=== PATIENT | male | born 1965 ===

== ENCOUNTER → 2021-11-17 14:07 | Outpatient (CLI) | payer OTHER, SELFPAY ==
--- NOTE | ~2021-11-17 | MR_ITS ---
EXAMINATION: MR knee LT wo con DATE: 11/17/2021 14:46 INDICATION: Acute left knee pain, no injury TECHNIQUE: Magnetic resonance imaging (MRI) of the left knee was performed without intravenous contra st. Sequences included axial PD-weighted FS FSE, coronal PD-weighted FSE and PD-weighted FS FSE, sagi ttal PD-weighted FSE, and sagittal T2-weighted FS FSE. COMPARISON: None. FINDINGS: Medial compartment: Oblique tear of the posterior horn/body. Mild diffuse cartilage thinning. Mild osteophytosis. Lateral compartment: Meniscus intact. Mild diffuse cartilage thinning. Mild osteophytosis. Patellofemoral compartment: Near full-thickness cartilage loss and fraying along the medial facet. Small cartilaginous fissure in the lateral facet. Retinacula are intact. Ligaments and tendons: ACL, PCL, LCL, and MCL are intact. Major flexor and extensor tendons are intact. Fluid: Small volume joint fluid. Small Aragon's cyst. Osseous/other: Bone marrow signal is benign and homogenous. Subcutaneous edema over the patella and patellar tendon IMPRESSION: 1. Oblique tear of the body/posterior horn, medial meniscus. 2. Anterior soft tissue contusion/edema. 3. Small joint effusion. Small Aragon's cyst. 4. Chondromalacia patella. Reviewed, dictated and finalized at location K.
== END ==
PROVIDERS: PCP Internal Medicine; Visit Provider Physician Assistant
DX: M25.462 Effusion, left knee (principal); M71.22 Synovial cyst of popliteal space [Baker], left knee
CPT/HCPCS: 73721

== ENCOUNTER → 2022-08-10 14:34 | Outpatient (CLI) | payer OTHER, SELFPAY ==
--- NOTE | ~2022-08-10 | MR_ITS ---
EXAMINATION: MR knee LT wo con DATE: 08/10/2022 15:16 INDICATION: Left knee pain post arthroscopy TECHNIQUE: Magnetic resonance imaging (MRI) of the left knee was performed without intravenous contra st. Sequences included coronal PD-weighted FSE, coronal PD-weighted FS FSE, sagittal T2-weighted FSE , sagittal PD-weighted FS FSE and axial PD weighted fat saturated FSE. COMPARISON: 11/17/2021 FINDINGS: Medial compartment: Persistent longitudinal horizontal tear extending to the inferior articular surface of the posterior body and posterior horn of the medial meniscus. There is decreased size of the posterior horn which c ould be related to interval partial meniscectomy. Frayed irregular contour course of the superior and inferior articular surface and inner free edge of the posterior horn. Partial-thickness chondral ulc eration with chondral surface regularity along the lateral half of the central weightbearing medial f emoral condyle. Mild partial-thickness cartilage loss with smooth chondral surface along the medial t ibial plateau. Lateral compartment: Lateral meniscus is normal. Mild partial-thickness cartilage loss along the posterior weightbearing l ateral femoral condyle. Cartilage is otherwise normal. Patellofemoral compartment: Small regions of deep chondral ulceration at the medial aspect of the medial patellar facet and along the inferior medial trochlea. Small region of shallow chondral fissuring at the medial side of the l ateral patellar facet. Ligaments and tendons: Anterior and posterior cruciate ligaments are normal. The medial collateral ligament and fibular princess ateral ligament complex are normal. Mild patellar and distal quadriceps tendinopathy. The visualized medial and lateral hamstring tendons as well as the iliotibial band are normal. Fluid: Physiologic amount of fluid in the joint space. No loose osteochondral bodies identified. Tiny Aragon' s cyst. Mild subcutaneous edema surrounding a minimal amount of fluid in the prepatellar bursa consis tent with mild bursitis. Osseous/other: A couple tiny low signal intensity bone islands at the lateral femoral condyle. Bone marrow signal is normal. No fracture or pathologic marrow replacing process. IMPRESSION: 1. Persistent longitudinal horizontal tear of the posterior body and posterior horn of the medial men iscus. There is decreased size and frayed margins of the posterior horn suggesting likely sequela of prior partial meniscectomy. 2. Mild osteoarthritis with moderate grade chondromalacia in the medial and patellofemoral compartmen ts. 3. Mild prepatellar bursitis. 4. Small left knee joint effusion with tiny Aragon cyst. Reviewed, dictated and finalized at location L. IMPRESSION: 1. Persistent longitudinal horizontal tear of the posterior body and posterior horn of the medial meniscus. There is decreased size and frayed margins of the posterior horn suggesting likely sequela of prior partial meniscectomy. 2. Mild osteoarthritis with moderate grade chondromalacia in the medial and pat ellofemoral compartments. 3. Mild prepatellar bursitis. 4. Small left knee joint effusion with tiny Aragon cyst.
== END ==
PROVIDERS: PCP Internal Medicine
DX: Z98.890 Other specified postprocedural states (principal); M25.462 Effusion, left knee; M17.12 Unilateral primary osteoarthritis, left knee; M70.42 Prepatellar bursitis, left knee
CPT/HCPCS: 73721